=== PATIENT | female | born 1945 | race Caucasian/White ===

== ENCOUNTER 2021-02-10 09:06 | Outpatient (CLI) | payer MEDICARE ==
[2021-02-10] MEDS ORDERED: LIDOCAINE 1%, 10ML ONE (09:20)
== END 2021-02-10 23:59 | disposition home or self-care (01) ==
LOC: RAD 09:06
PROVIDERS: ATTEND Internal Medicine Endocrinology, Diabetes & Metabolism
DX: E04.2 Nontoxic multinodular goiter (principal)
CPT/HCPCS: 10005; 88112; 88173